=== PATIENT | female | born 1950 | race African-American/Black ===

== ENCOUNTER 2018-12-22 13:01 | Outpatient (CLI) | payer MEDICARE ==
--- NOTE | 2018-12-22 13:56 | MMO ---
Bilateral MAMMO Bilat Screen [facility]. CLINICAL HISTORY: Patient is 68 years old and is seen for screening. The patient has the following family history of breast cancer: maternal aunt, malignant (generic). 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 VIEWS: The views performed were: bilateral craniocaudal with tomosynthesis and bilateral mediolateral oblique with tomosynthesis. FILMS COMPARED: The present examination has been compared to prior imaging studies performed at [facility] on 10/11/2008, 05/28/2010 and 03/28/2012. This study has been interpreted with the assistance of computer-aided detection. MAMMOGRAM FINDINGS: There are scattered fibroglandular densities. Finding 1: There is a stable mass seen in the lower region of the left breast. Finding 2: There are benign appearing calcifications seen in the left breast. There are no suspicious masses, suspicious calcifications, or new areas of architectural distortion. IMPRESSION: THERE IS NO MAMMOGRAPHIC EVIDENCE OF MALIGNANCY. A ROUTINE FOLLOW-UP MAMMOGRAM IN 1 YEAR IS RECOMMENDED. THE RESULTS OF THIS EXAM WERE SENT TO THE PATIENT. ACR BI-RADS Category 2 - Benign finding MAMMOGRAPHY NOTE: 1. A negative mammogram report should not delay a biopsy if a dominant of clinically suspicious mass is present. 2. Approximately 10% to 15% of breast cancers are not detected by mammography. 3. Adenosis and dense breasts may obscure an underlying neoplasm. Reported by: JUJU WU MD Electonically Signed: [id number]
== END 2018-12-22 13:02 | disposition home or self-care (01) ==
LOC: BICMAMMO 13:01
PROVIDERS: ATTEND Family Medicine
DX: Z12.31 Encounter for screening mammogram for malignant neoplasm of breast (principal); Z80.3 Family history of malignant neoplasm of breast; Z90.11 Acquired absence of right breast and nipple
CPT/HCPCS: 77063; 77067

== ENCOUNTER 2020-08-13 12:37 | Outpatient (CLI) | payer MEDICARE | END 2020-08-13 12:38 | disposition home or self-care (01) | LOC: BICMAMMO 12:37 | PROVIDERS: ATTEND Family Medicine | DX: Z12.31 Encounter for screening mammogram for malignant neoplasm of breast (principal); Z85.3 Personal history of malignant neoplasm of breast; Z80.3 Family history of malignant neoplasm of breast | CPT/HCPCS: 77063; 77067 ==

== ENCOUNTER 2022-01-21 13:46 | Outpatient (CLI) | payer MEDICARE, OTHER | END 2022-01-21 13:47 | disposition home or self-care (01) | LOC: BICMAMMO 13:46 | PROVIDERS: ATTEND Family Medicine | DX: Z12.31 Encounter for screening mammogram for malignant neoplasm of breast (principal); Z80.3 Family history of malignant neoplasm of breast; Z85.3 Personal history of malignant neoplasm of breast; Z90.11 Acquired absence of right breast and nipple | CPT/HCPCS: 77063; 77067 ==

== ENCOUNTER 2022-02-11 07:34 | Day surgery (SDC) | payer MEDICARE ==
[2022-02-10 10:44] VITALS: BMI 32.5
[2022-02-11] MEDS ORDERED: SUGAMMADEX SODIUM 200 MG/2 ML VIAL ONE (10:22)
[2022-02-11] MEDS ORDERED: Rocuronium Bromide 10 MG/ML (10ML VIAL) ONE (10:36)
[2022-02-11] MEDS ORDERED: Metoclopramide HCl 10 MG/2 ML VIAL ONE (10:36)
[2022-02-11] MEDS ORDERED: Lidocaine 1% PF 5 ML VIAL ONE (10:36)
[2022-02-11] MEDS ORDERED: Glycopyrrolate 0.2 MG/ML 5 ML SYRINGE ONE (10:36)
[2022-02-11] MEDS ORDERED: NEOSTIGMINE 3 MG/3 ML SYR 3 MG/3 ML SYRINGE ONE (10:36)
[2022-02-11] MEDS ORDERED: PROPOFOL 200 MG/20 ML VIAL ONE (10:36)
[2022-02-11] MEDS ORDERED: Ondansetron PF 4 MG/2 ML Vial ONE (10:36)
[2022-02-11] MEDS ORDERED: PHENYLEPHRINE-NS 100 MCG/ML 10 ML SYRINGE ONE (10:36)
[2022-02-11] MEDS ORDERED: Succinylcholine Chloride 100 MG/5 ML SYRINGE FS ONE (10:36)
== END 2022-02-11 13:00 | disposition home or self-care (01) ==
LOC: SDC 07:34
PROVIDERS: ATTEND Internal Medicine Critical Care Medicine
PROC: 0BB48ZX Excision of Right Upper Lobe Bronchus, Via Natural or Artificial Opening Endoscopic, Diagnostic (ICD-10-PCS; principal; 2022-02-11)
PROC: 0BD48ZX Extraction of Right Upper Lobe Bronchus, Via Natural or Artificial Opening Endoscopic, Diagnostic (ICD-10-PCS; 2022-02-11)
DX: J98.4 Other disorders of lung (principal); I10 Essential (primary) hypertension; E11.9 Type 2 diabetes mellitus without complications; M19.90 Unspecified osteoarthritis, unspecified site; E78.5 Hyperlipidemia, unspecified; G47.30 Sleep apnea, unspecified; F17.290 Nicotine dependence, other tobacco product, uncomplicated; G89.29 Other chronic pain; Z85.3 Personal history of malignant neoplasm of breast; Z79.4 Long term (current) use of insulin; Z79.84 Long term (current) use of oral hypoglycemic drugs; Z79.899 Other long term (current) drug therapy; Z88.5 Allergy status to narcotic agent
CPT/HCPCS: 36416; 87070; 87102; 87116; 87205; 87206; 88112; 88305; J2405; J2704; J2765

== ENCOUNTER 2022-03-10 08:53 | Outpatient (CLI) | payer MEDICARE ==
[2022-03-10 11:02] LABS: Mean Corpuscular HGB CONC 32.4 g/dL (32.0-36.0); Mean Corpuscular Hemoglobin 29.5 pg (27.0-33.0); Mean Corpuscular Volume 90.9 fl (81.6-98.3); Mean Platelet Volume 10.6 fl (7.4-10.4); Platelet Count 267 10x3/uL (150-450); RBC Distribution Width 14.7 % (11.5-14.5); Red Blood Cell (RBC) Count 4.75 10x6/uL (3.90-5.03); White Blood Cell (WBC) Count 4.7 10x3/uL (3.5-10.5)
[2022-03-10 11:08] LABS: Anion Gap 13 mmol/L (10-20); BUN (Urea Nitrogen) 14 mg/dL (9.8-20.1); Calc. Creatinine Clearance 0 mL/min (70-130); Calcium 10.7 mg/dL (7.8-10.44); Carbon Dioxide 29 mmol/L (23-31); Chloride 104 mmol/L (98-107); Estimated GFR 49; Glucose 108 mg/dL (83-110); Potassium 3.9 mmol/L (3.5-5.1); Sodium 142 mmol/L (136-145)
== END 2022-03-10 08:54 | disposition home or self-care (01) ==
LOC: LABBT 08:53
PROVIDERS: ATTEND Thoracic Surgery (Cardiothoracic Vascular Surgery)
DX: Z01.818 Encounter for other preprocedural examination (principal)
CPT/HCPCS: 80048; 85027; 93005; 93010

== ENCOUNTER 2022-03-11 06:21 | Day surgery (SDC) | payer MEDICARE ==
[2022-03-10 10:37] VITALS: BMI 31.2
[2022-03-11] MEDS ORDERED: Midazolam HCl 2 mg/2 ml Vial ONE (06:24)
[2022-03-11] MEDS ORDERED: fentaNYL PF 100 MCG/2 ML SYRINGE ONE (06:24)
[2022-03-11] MEDS ORDERED: Norepinephrine 4 MG/4 ML VIAL ONE (06:24)
[2022-03-11] MEDS ORDERED: PHENYLEPHRINE-NS 100 MCG/ML 10 ML SYRINGE ONE ×2 (06:25→07:00)
[2022-03-11] MEDS ORDERED: Dexamethasone 4 mg/ml Vial ONE (06:37)
[2022-03-11] MEDS ORDERED: Bupivacaine HCl 0.5%/Epinephrine 1:200,000/PF 30 ml Vial ONE (06:37)
[2022-03-11] MEDS ORDERED: Naloxone HCl 0.4 mg/ml Vial ONE (07:00)
[2022-03-11] MEDS ORDERED: PROPOFOL 200 MG/20 ML VIAL ONE (07:00)
[2022-03-11] MEDS ORDERED: diphenhydrAMINE 50 MG/ML VIAL ONE ×2 (07:00→08:10)
[2022-03-11] MEDS ORDERED: Ondansetron PF 4 MG/2 ML Vial ONE ×2 (07:00→08:10)
[2022-03-11] MEDS ORDERED: Rocuronium Bromide 10 MG/ML (10ML VIAL) ONE (07:00)
[2022-03-11] MEDS ORDERED: CEFAZOLIN 2 GM VIAL ONE (07:18)
[2022-03-11] MEDS ORDERED: Sodium Chloride 0.9% 100 ML ONE (07:18)
[2022-03-11] MEDS ORDERED: SUGAMMADEX SODIUM 200 MG/2 ML VIAL ONE (07:54)
== END 2022-03-11 09:43 | disposition home or self-care (01) ==
LOC: SDC 06:21
PROVIDERS: ATTEND Thoracic Surgery (Cardiothoracic Vascular Surgery)
PROC: 0HJPXZZ Inspection of Skin, External Approach (ICD-10-PCS; principal; 2022-03-11)
DX: J98.59 Other diseases of mediastinum, not elsewhere classified (principal); R91.8 Other nonspecific abnormal finding of lung field; R59.0 Localized enlarged lymph nodes; E11.9 Type 2 diabetes mellitus without complications; E78.2 Mixed hyperlipidemia; I10 Essential (primary) hypertension; M19.90 Unspecified osteoarthritis, unspecified site; E78.5 Hyperlipidemia, unspecified; Z53.8 Procedure and treatment not carried out for other reasons; Z85.3 Personal history of malignant neoplasm of breast; Z87.891 Personal history of nicotine dependence; Z79.4 Long term (current) use of insulin; Z79.84 Long term (current) use of oral hypoglycemic drugs; Z79.899 Other long term (current) drug therapy; Z88.5 Allergy status to narcotic agent
CPT/HCPCS: 36416; J1100; J1200; J2250; J2310; J2405; J2704; J3490

== ENCOUNTER 2022-03-16 06:04 | Day surgery (SDC) | payer MEDICARE ==
[2022-03-13 15:17] VITALS: BMI 31.2
[2022-03-16] MEDS ORDERED: Dexamethasone 4 mg/ml Vial ONE (06:34)
[2022-03-16] MEDS ORDERED: Bupivacaine HCl 0.5%/Epinephrine 1:200,000/PF 30 ml Vial ONE (06:34)
[2022-03-16] MEDS ORDERED: fentaNYL PF 100 MCG/2 ML SYRINGE ONE (07:03)
[2022-03-16] MEDS ORDERED: Sodium Chloride 0.9% 100 ML ONE (07:13)
[2022-03-16] MEDS ORDERED: CEFAZOLIN 2 GM VIAL ONE (07:13)
[2022-03-16] MEDS ORDERED: Rocuronium Bromide 10 MG/ML (10ML VIAL) ONE (07:33)
[2022-03-16] MEDS ORDERED: NEOSTIGMINE 3 MG/3 ML SYR 3 MG/3 ML SYRINGE ONE (07:33)
[2022-03-16] MEDS ORDERED: Ondansetron PF 4 MG/2 ML Vial ONE (07:33)
[2022-03-16] MEDS ORDERED: Lidocaine 1% PF 5 ML VIAL ONE (07:33)
[2022-03-16] MEDS ORDERED: PHENYLEPHRINE-NS 100 MCG/ML 10 ML SYRINGE ONE (07:33)
[2022-03-16] MEDS ORDERED: ePHEDrine 50 MG/ML VIAL ONE (07:33)
[2022-03-16] MEDS ORDERED: PROPOFOL 200 MG/20 ML VIAL ONE (07:33)
[2022-03-16] MEDS ORDERED: Glycopyrrolate 0.2 MG/ML 5 ML SYRINGE ONE (07:33)
[2022-03-16] MEDS ORDERED: Dexamethasone 20 MG/5 ML VIAL ONE (07:33)
[2022-03-16] MEDS ORDERED: Ipratropium/Albuterol 3 ML NEB ONE (08:40)
[2022-03-16] MEDS ORDERED: Fentanyl 100 MCG/2 ML VIAL ONE (09:00)
[2022-03-16] MEDS ORDERED: HYDROcodone/Acetaminophen 5/325 mg Tablet ONE (09:46)
== END 2022-03-16 10:38 | disposition home or self-care (01) ==
LOC: SDC 06:04
PROVIDERS: ATTEND Thoracic Surgery (Cardiothoracic Vascular Surgery)
PROC: 07B74ZX Excision of Thorax Lymphatic, Percutaneous Endoscopic Approach, Diagnostic (ICD-10-PCS; principal; 2022-03-16)
DX: C34.90 Malignant neoplasm of unspecified part of unspecified bronchus or lung (principal); C77.1 Secondary and unspecified malignant neoplasm of intrathoracic lymph nodes; E11.9 Type 2 diabetes mellitus without complications; E78.2 Mixed hyperlipidemia; I10 Essential (primary) hypertension; M19.90 Unspecified osteoarthritis, unspecified site; Z85.3 Personal history of malignant neoplasm of breast; Z87.891 Personal history of nicotine dependence; Z79.4 Long term (current) use of insulin; Z79.84 Long term (current) use of oral hypoglycemic drugs; Z79.899 Other long term (current) drug therapy; Z88.5 Allergy status to narcotic agent
CPT/HCPCS: 88305; 88341; 88342; J1100; J2405; J2704; J3010; J3490; J7620

== ENCOUNTER 2022-04-14 10:27 | Outpatient (CLI) | payer MEDICARE ==
[2022-04-14 12:19] LABS: #Basophils 0.1 10x3/uL (0.0-0.2); #Eosinphils 0.2 10x3/uL (0.0-0.5); #Monocytes 0.5 10x3/uL (0.0-1.1); #Neutrophils 3.3 10x3/uL (1.5-8.4); %Basophils 1.3 % (0.0-2.0); %Eosinophils 3.2 % (0.0-6.0); %Lymphocytes 24.4 % (18.0-47.0); %Monocytes 9.3 % (0.0-10.0); %Neutrophils 61.6 % (40.0-75.0); Hemoglobin 13.3 g/dL (12.0-15.5); Mean Corpuscular HGB CONC 31.4 g/dL (32.0-36.0); Mean Corpuscular Hemoglobin 28.9 pg (27.0-33.0); Mean Corpuscular Volume 91.8 fl (81.6-98.3); Mean Platelet Volume 10.7 fl (7.4-10.4); Platelet Count 290 10x3/uL (150-450); Red Blood Cell (RBC) Count 4.61 10x6/uL (3.90-5.03); White Blood Cell (WBC) Count 5.4 10x3/uL (3.5-10.5)
[2022-04-14 12:35] LABS: Anion Gap 17 mmol/L (10-20); BUN (Urea Nitrogen) 13 mg/dL (9.8-20.1); Calc. Creatinine Clearance 0 mL/min (70-130); Calcium 10.7 mg/dL (7.8-10.44); Carbon Dioxide 27 mmol/L (23-31); Chloride 102 mmol/L (98-107); Estimated GFR 47; Glucose 81 mg/dL (83-110); Sodium 142 mmol/L (136-145)
== END 2022-04-14 10:28 | disposition home or self-care (01) ==
LOC: LABBT 10:27
PROVIDERS: ATTEND Surgery
DX: Z01.812 Encounter for preprocedural laboratory examination (principal); C34.90 Malignant neoplasm of unspecified part of unspecified bronchus or lung
CPT/HCPCS: 80048; 85025

== ENCOUNTER 2022-04-16 11:45 | Outpatient (CLI) | payer MEDICARE | END 2022-04-16 11:46 | disposition home or self-care (01) | LOC: PET 11:45 | PROVIDERS: ATTEND Internal Medicine | DX: C34.31 Malignant neoplasm of lower lobe, right bronchus or lung (principal); C78.1 Secondary malignant neoplasm of mediastinum; C79.72 Secondary malignant neoplasm of left adrenal gland; C79.51 Secondary malignant neoplasm of bone; C79.89 Secondary malignant neoplasm of other specified sites | CPT/HCPCS: 78815; A9552 ==

== ENCOUNTER 2022-04-17 11:00 | Day surgery (SDC) | payer MEDICARE ==
[2022-04-15 14:56] VITALS: BMI 31.6
[2022-04-17] MEDS ORDERED: Bupivacaine/Epinephrine 0.25% 30 ML VIAL ONE (13:17)
[2022-04-17] MEDS ORDERED: Lidocaine 2% PF 5 ML VIAL ONE (13:17)
[2022-04-17] MEDS ORDERED: Propofol 500 MG/50 ML VIAL ONE (13:24)
[2022-04-17] MEDS ORDERED: fentaNYL PF 100 MCG/2 ML SYRINGE ONE (13:24)
[2022-04-17] MEDS ORDERED: CEFAZOLIN 2 GM VIAL ONE (13:27)
[2022-04-17] MEDS ORDERED: Sodium Chloride 0.9% 100 ML ONE (13:27)
== END 2022-04-17 15:20 | disposition home or self-care (01) ==
LOC: SDC 11:00
PROVIDERS: ATTEND Surgery
PROC: 0JH60WZ Insertion of Totally Implantable Vascular Access Device into Chest Subcutaneous Tissue and Fascia, Open Approach (ICD-10-PCS; principal; 2022-04-17)
PROC: 02HV33Z Insertion of Infusion Device into Superior Vena Cava, Percutaneous Approach (ICD-10-PCS; 2022-04-17)
PROC: B518YZA Fluoroscopy of Superior Vena Cava using Other Contrast, Guidance (ICD-10-PCS; 2022-04-17)
DX: C34.90 Malignant neoplasm of unspecified part of unspecified bronchus or lung (principal); I10 Essential (primary) hypertension; E11.9 Type 2 diabetes mellitus without complications; Z79.4 Long term (current) use of insulin; Z79.84 Long term (current) use of oral hypoglycemic drugs; Z79.899 Other long term (current) drug therapy; Z88.5 Allergy status to narcotic agent; Z87.891 Personal history of nicotine dependence; Z85.3 Personal history of malignant neoplasm of breast
CPT/HCPCS: 36561; 71045; 82962; C1788; 36416; J1642; J2001; J2704; J3490

== ENCOUNTER 2022-04-21 13:41 | Outpatient (CLI) | payer MEDICARE | END 2022-04-21 13:42 | disposition home or self-care (01) | LOC: SCSMRI 13:41 | PROVIDERS: ATTEND Internal Medicine | DX: C34.91 Malignant neoplasm of unspecified part of right bronchus or lung (principal); I67.82 Cerebral ischemia | CPT/HCPCS: 70553 ==

== ENCOUNTER 2022-05-11 22:17 | Emergency (ER) | payer MEDICARE ==
[2022-05-12 02:29] LABS: #Basophils 0.1 thou/uL (0.0-0.2); #Eosinphils 0.2 thou/uL (0.0-0.7); #Lymphocytes 1.1 thou/uL (1.20-3.40); #Monocytes 0.7 thou/uL (0.11-0.59); #Neutrophils 4.5 thou/uL (1.40-6.50); %Basophils 1.2 % (0.0-1.0); %Eosinophils 2.5 % (0.0-10.0); %Lymphocytes 17.4 % (21.0-51.0); %Monocytes 10.2 % (0.0-10.0); %Neutrophils 68.7 % (42.0-75.0); Hemoglobin 14.2 g/dL (12.0-16.0); Mean Corpuscular HGB CONC 32.7 g/dL (32.0-36.0); Mean Corpuscular Hemoglobin 30.4 pg (27.0-31.0); Mean Corpuscular Volume 92.8 fl (78.0-98.0); Mean Platelet Volume 8.4 fL (7.4-10.4); Platelet Count 244 10x3/uL (130-400); RBC Distribution Width 12.8 % (11.5-14.5); Red Blood Cell (RBC) Count 4.69 mill/uL (4.20-5.40); White Blood Cell (WBC) Count 6.5 10x3/uL (4.8-10.8)
[2022-05-12 03:11] LABS: ALT (SGPT) 11 U/L (8-55); AST (SGOT) 14 U/L (5-34); Albumin 4.2 g/dL (3.4-4.8); Alkaline Phosphatase 89 U/L (40-110); Anion Gap 15 mmol/L (10-20); BUN (Urea Nitrogen) 14 mg/dL (9.8-20.1); Bilirubin, Total 0.9 mg/dL (0.2-1.2); Calc. Creatinine Clearance 0 mL/min (70-130); Calcium 10.7 mg/dL (7.8-10.44); Carbon Dioxide 26 mmol/L (23-31); Chloride 99 mmol/L (98-107); Estimated GFR 56; Globulin 3.1 g/dL (2.4-3.5); Glucose 105 mg/dL (83-110); Lipase 22 U/L (8-78); Potassium 3.7 mmol/L (3.5-5.1); Protein, Total 7.3 g/dL (5.8-8.1); Sodium 136 mmol/L (136-145)
[2022-05-12] MEDS ORDERED: Ketorolac Tromethamine 30 MG/ML VIAL ONE (03:15)
[2022-05-12] MEDS ORDERED: Ondansetron PF 4 MG/2 ML Vial ONE (03:15)
[2022-05-12] MEDS ORDERED: Morphine 4 MG/ML VIAL ONE (03:15)
== END 2022-05-12 08:41 | disposition home or self-care (01) ==
LOC: ERS 22:17
DX: J18.9 Pneumonia, unspecified organism (principal); R11.0 Nausea; E78.00 Pure hypercholesterolemia, unspecified; E11.9 Type 2 diabetes mellitus without complications; I10 Essential (primary) hypertension; Z87.891 Personal history of nicotine dependence
CPT/HCPCS: 36415; 71045; 71275; 76705; 80053; 83690; 85025; 85379; 96374; 96375; J1885; J2270; J2405

== ENCOUNTER 2022-09-04 10:57 | Outpatient (CLI) | payer MEDICARE ==
[2022-09-04] MEDS ORDERED: Magnevist 469MG/ML 20 ML VIAL ONE (11:37)
== END 2022-09-04 10:58 | disposition home or self-care (01) ==
LOC: PET 10:57
PROVIDERS: ATTEND Internal Medicine
DX: C34.91 Malignant neoplasm of unspecified part of right bronchus or lung (principal); C79.31 Secondary malignant neoplasm of brain; C79.51 Secondary malignant neoplasm of bone; R91.1 Solitary pulmonary nodule
CPT/HCPCS: 70553; 78815; A9552; A9579

== ENCOUNTER 2022-12-08 10:15 | Outpatient (CLI) | payer MEDICARE | END 2022-12-08 10:16 | disposition home or self-care (01) | LOC: PET 10:15 | PROVIDERS: ATTEND Internal Medicine | DX: C34.31 Malignant neoplasm of lower lobe, right bronchus or lung (principal) | CPT/HCPCS: 78815; A9552 ==

== ENCOUNTER 2023-01-13 12:08 | Outpatient (CLI) | payer MEDICARE | END 2023-01-13 12:09 | disposition home or self-care (01) | LOC: SCSMRI 12:08 | PROVIDERS: ATTEND Internal Medicine | DX: C34.91 Malignant neoplasm of unspecified part of right bronchus or lung (principal); C79.31 Secondary malignant neoplasm of brain; R42 Dizziness and giddiness | CPT/HCPCS: 70553; 80053 ==

== ENCOUNTER 2023-03-21 09:02 | Emergency (ER) | payer MEDICARE ==
[2023-03-21 09:55] LABS: #Basophils 0.1 thou/uL (0.0-0.2); #Eosinphils 0.1 thou/uL (0.0-0.7); #Monocytes 0.5 thou/uL (0.11-0.59); #Neutrophils 1.5 thou/uL (1.40-6.50); %Basophils 1.4 % (0.0-1.0); %Lymphocytes 36.9 % (21.0-51.0); %Monocytes 14.6 % (0.0-10.0); %Neutrophils 43.1 % (42.0-75.0); Hematocrit 39.2 % (36.0-47.0); Hemoglobin 12.6 g/dL (12.0-16.0); Mean Corpuscular HGB CONC 32.1 g/dL (32.0-36.0); Mean Corpuscular Hemoglobin 30.1 pg (27.0-31.0); Mean Corpuscular Volume 93.6 fl (78.0-98.0); Mean Platelet Volume 10.9 fL (7.4-10.4); Platelet Count 226 10x3/uL (130-400); RBC Distribution Width 13.7 % (11.5-14.5); Red Blood Cell (RBC) Count 4.19 mill/uL (4.20-5.40); White Blood Cell (WBC) Count 3.5 10x3/uL (4.8-10.8)
[2023-03-21] MEDS ORDERED: Iopamidol-370 76% 500 ML MDV (1 ML CHARGE) ONE (10:10)
[2023-03-21 10:18] LABS: INR-International Normal Ratio 1.1; Prothrombin Time 14.4 sec (12.0-14.7)
[2023-03-21 10:19] LABS: ALT (SGPT) 26 U/L (8-55); AST (SGOT) 25 U/L (5-34); Albumin 3.9 g/dL (3.4-4.8); Alkaline Phosphatase 200 U/L (40-110); Anion Gap 11 mmol/L (10-20); BUN (Urea Nitrogen) 10 mg/dL (9.8-20.1); Bilirubin, Total 0.9 mg/dL (0.2-1.2); Calc. Creatinine Clearance 0 mL/min (70-130); Calcium 10.5 mg/dL (7.8-10.44); Carbon Dioxide 26 mmol/L (23-31); Chloride 105 mmol/L (98-107); Estimated GFR 69; Globulin 2.6 g/dL (2.4-3.5); Glucose 99 mg/dL (83-110); Lipase 30 U/L (8-78); Potassium 3.2 mmol/L (3.5-5.1); Protein, Total 6.5 g/dL (5.8-8.1); Sodium 139 mmol/L (136-145)
[2023-03-21 10:22] LABS: Troponin I Less than 0.010 ng/mL (< 0.028)
== END 2023-03-21 14:25 | disposition home or self-care (01) ==
LOC: ERS 09:02
DX: R07.9 Chest pain, unspecified (principal); E11.9 Type 2 diabetes mellitus without complications; I10 Essential (primary) hypertension; Z87.891 Personal history of nicotine dependence
CPT/HCPCS: 36415; 71045; 71275; 80053; 83690; 84484; 85025; 85610; 85730; 93005; Q9967

== ENCOUNTER 2023-07-22 08:13 | Outpatient (CLI) | payer MEDICARE | END 2023-07-22 08:14 | disposition home or self-care (01) | LOC: CT 08:13 | PROVIDERS: ATTEND Internal Medicine | DX: C34.91 Malignant neoplasm of unspecified part of right bronchus or lung (principal); R91.1 Solitary pulmonary nodule; E27.8 Other specified disorders of adrenal gland; R59.0 Localized enlarged lymph nodes; N83.8 Other noninflammatory disorders of ovary, fallopian tube and broad ligament | CPT/HCPCS: 71260; 74177; J1642 ==

== ENCOUNTER 2023-07-29 09:02 | Outpatient (CLI) | payer MEDICARE | END 2023-07-29 09:03 | disposition home or self-care (01) | LOC: SCSMRI 09:02 | PROVIDERS: ATTEND Radiology Radiation Oncology | DX: C79.51 Secondary malignant neoplasm of bone (principal); M46.1 Sacroiliitis, not elsewhere classified; M16.11 Unilateral primary osteoarthritis, right hip; N85.9 Noninflammatory disorder of uterus, unspecified; D25.9 Leiomyoma of uterus, unspecified | CPT/HCPCS: 72197 ==

== ENCOUNTER 2023-09-29 15:13 | Outpatient (CLI) | payer MEDICARE ==
[~2023-09-29 15:13] MED LIST: Iopamidol 370 76% 100 ML VIAL ONE
== END 2023-09-29 15:14 | disposition home or self-care (01) ==
LOC: BICCT 15:13
PROVIDERS: ATTEND Internal Medicine
DX: C34.90 Malignant neoplasm of unspecified part of unspecified bronchus or lung (principal); R91.1 Solitary pulmonary nodule; J98.4 Other disorders of lung; E27.9 Disorder of adrenal gland, unspecified
CPT/HCPCS: 71260; 74177; 82565; Q9967

== ENCOUNTER 2023-12-09 09:32 | Outpatient (CLI) | payer MEDICARE ==
[2023-12-09] MEDS ORDERED: Iopamidol 370 76% 100 ML VIAL ONE (13:37)
== END 2023-12-09 09:33 | disposition home or self-care (01) ==
LOC: BICCT 09:32
PROVIDERS: ATTEND Internal Medicine
DX: C34.91 Malignant neoplasm of unspecified part of right bronchus or lung (principal)
CPT/HCPCS: 71260; 74177

== ENCOUNTER 2024-02-08 14:33 | Emergency (ER) | payer MEDICARE | END 2024-02-08 16:58 | disposition home or self-care (01) | LOC: ERS 14:33 | DX: M79.604 Pain in right leg (principal); E11.9 Type 2 diabetes mellitus without complications; I10 Essential (primary) hypertension; Z87.891 Personal history of nicotine dependence ==

== ENCOUNTER 2024-03-07 08:45 | Outpatient (CLI) | payer MEDICARE | END 2024-03-07 08:46 | disposition home or self-care (01) | LOC: PET 08:45 | PROVIDERS: ATTEND Internal Medicine | DX: C34.31 Malignant neoplasm of lower lobe, right bronchus or lung (principal); R97.8 Other abnormal tumor markers; E27.8 Other specified disorders of adrenal gland; M48.8X6 Other specified spondylopathies, lumbar region | CPT/HCPCS: 78815; A9552 ==

== ENCOUNTER 2024-03-21 04:40 | Inpatient (IN) | payer OTHER ==
[2024-03-21 05:13] LABS: #Basophils Less than 0.03 10x3/uL (0.0-0.2); %Basophils 0.3 % (0.0-1.0); %Eosinophils 1.1 % (0.0-10.0); %Monocytes 7.6 % (0.0-10.0); %Neutrophils 75.4 % (42.0-75.0); Hematocrit 36.7 % (36.0-47.0); Hemoglobin 12.3 g/dL (12.0-16.0); Mean Corpuscular HGB CONC 33.5 g/dL (32.0-36.0); Mean Corpuscular Hemoglobin 28.6 pg (27.0-31.0); Mean Corpuscular Volume 85.3 fL (78.0-98.0); Mean Platelet Volume 10.6 fL (7.4-10.4); Platelet Count 183 10x3/uL (130-400); RBC Distribution Width 14.7 % (11.5-14.5)
[2024-03-21 05:28] LABS: ALT (SGPT) 9 U/L (Less than 34); AST (SGOT) 19 U/L (11-34); Albumin 3.5 g/dL (3.1-4.5); Alkaline Phosphatase 143 U/L (40-110); Anion Gap 14 mmol/L (10-20); BUN (Urea Nitrogen) 31 mg/dL (9.8-20.1); Bilirubin, Total 0.6 mg/dL (0.3-1.2); CK (CPK) 99 U/L (29-168); Calc. Creatinine Clearance 0 mL/min (70-130); Calcium 9.6 mg/dL (7.8-10.44); Carbon Dioxide 20 mmol/L (23-31); Chloride 104 mmol/L (98-107); Estimated GFR 27; Globulin 2.9 g/dL (2.4-3.5); Glucose 99 mg/dL (83-110); Lipase 52 U/L (8-78); Potassium 4.2 mmol/L (3.5-5.1); Protein, Total 6.4 g/dL (5.8-8.1); Sodium 134 mmol/L (136-145)
[2024-03-21 05:32] LABS: Troponin I 0.017 ng/mL (< 0.028)
[2024-03-21] MEDS ORDERED: Enoxaparin 30 MG (0.3 mL) SYRINGE ONE (08:05)
[2024-03-21] MEDS ORDERED: TRAMADOL HCL 100 MG PO PRN (08:18)
[2024-03-21] MEDS ORDERED: Calcium Carbonate 500 MG ChewTAB PO PRN (08:19)
[2024-03-21] MEDS ORDERED: Senokot S 8.6-50 MG TAB PO PRN ×2 (08:19→08:59)
[2024-03-21] MEDS ORDERED: traMADol HCl 50 MG TAB PO PRN (08:27)
[2024-03-21] MEDS ORDERED: Sodium Chloride 0.9% 1,000 ML IV SCH (08:30)
[2024-03-21] MEDS ORDERED: Insulin Lispro 100 UNIT/ML 10 ML VIAL SC PRN (08:33)
[2024-03-21] MEDS ORDERED: Dextrose 5% in Water 1,000 ML IV PRN (08:33)
[2024-03-21] MEDS ORDERED: Glucagon 1 MG/ML KIT IM PRN (08:33)
[2024-03-21] MEDS ORDERED: Enoxaparin 40 MG (0.4 mL) SYRINGE SC SCH (09:00)
[2024-03-21] MEDS ORDERED: Empagliflozin 10 MG TAB PO SCH (09:00)
[2024-03-21] MEDS ORDERED: Iopamidol-370 76% 500 ML MDV (1 ML CHARGE) ONE (11:26)
[2024-03-21] MEDS: Sodium Chloride 0.9% 1,000 ML IV SCH (14:06)
[2024-03-21] MEDS: Lisinopril 20 MG TAB PO SCH (14:06)
[2024-03-21] MEDS: Dextrose 50% Abboject 50 ML SYRINGE SLOW IVP PRN (16:18)
[2024-03-21] MEDS: Dextrose 5 % And 0.9 % NaCl 1,000 ML IV SCH (17:45)
[2024-03-21] MEDS: Enoxaparin 80 MG (0.8 mL) SYRINGE SC SCH (20:29)
[2024-03-21] MEDS: Memantine 10 MG TAB PO SCH (20:30)
[2024-03-21] MEDS: Atorvastatin Calcium 20 MG TAB PO SCH (20:30)
[2024-03-21] MEDS: Sodium Chloride 0.9% 500 ML IV SCH (20:31)
[2024-03-21] MEDS ORDERED: Insulin Glargine 30 UNITS/0.3 ML VIAL SC SCH (21:00)
[2024-03-22] MEDS: [UNRECOGNIZED DRUG - OTHER] PO SCH (01:23)
[2024-03-22] MEDS: Ondansetron PF 4 MG/2 ML Vial IVP PRN (02:34)
[2024-03-22 04:32] LABS: #Basophils Less than 0.03 10x3/uL (0.0-0.2); %Basophils 0.3 % (0.0-1.0); %Monocytes 8.7 % (0.0-10.0); Hematocrit 36.6 % (36.0-47.0); Hemoglobin 11.5 g/dL (12.0-16.0); Mean Corpuscular HGB CONC 31.4 g/dL (32.0-36.0); Mean Corpuscular Hemoglobin 28.6 pg (27.0-31.0); Mean Platelet Volume 10.7 fL (7.4-10.4); Platelet Count 163 10x3/uL (130-400); Red Blood Cell (RBC) Count 4.02 mill/uL (4.20-5.40)
[2024-03-22 05:15] LABS: ALT (SGPT) 7 U/L (Less than 34); AST (SGOT) 18 U/L (11-34); Albumin 2.8 g/dL (3.1-4.5); Alkaline Phosphatase 120 U/L (40-110); Anion Gap 15 mmol/L (10-20); BUN (Urea Nitrogen) 17 mg/dL (9.8-20.1); Bilirubin, Total 0.7 mg/dL (0.3-1.2); Calc. Creatinine Clearance 39 mL/min (70-130); Calcium 8.7 mg/dL (7.8-10.44); Carbon Dioxide 13 mmol/L (23-31); Chloride 114 mmol/L (98-107); Estimated GFR 40; Globulin 2.6 g/dL (2.4-3.5); Glucose 104 mg/dL (83-110); Magnesium 1.9 mg/dL (1.6-2.6); Potassium 3.9 mmol/L (3.5-5.1); Protein, Total 5.4 g/dL (5.8-8.1); Sodium 138 mmol/L (136-145)
[2024-03-22] MEDS: Levothyroxine Sodium 75 MCG TAB PO SCH (05:28)
[2024-03-22 10:02] VITALS: BMI 26.4
[2024-03-22] MEDS ORDERED: Loperamide HCl 2 MG CAP PO PRN (14:17)
[2024-03-22 15:59] LABS: Bacteria/HPF None Seen HPF (None Seen); Bilirubin Negative (Negative); Blood, Urine Negative (Negative); CAUTI Indications for Culture Immunosuppressed; Clarity Clear (Clear); Glucose, Urine (Dipstick) 300 mg/dL (Negative); Ketone, Urine Negative (Negative); Leukocyte Negative Leu/uL (Negative); Nitrite Negative (Negative); Protein, Urine (Dipstick) Negative (Neg-Trace); RBC/HPF 0-3 HPF (0-3); Specific Gravity, Urine 1.016 (1.002-1.036); Squamous Epithelial 0-3 HPF (0-3); Urobilinogen Normal mg/dL (Less than 2); WBC/HPF 0-3 HPF (0-3)
[2024-03-22] MEDS: Loperamide HCl 2 MG CAP PO SCH (16:03)
[2024-03-22 16:06] LABS: Urine Culture Reflex Yes Yes
[2024-03-23 08:14] LABS: #Basophils Less than 0.03 10x3/uL (0.0-0.2); %Basophils 0.5 % (0.0-1.0); %Eosinophils 1.7 % (0.0-10.0); %Lymphocytes 9.5 % (21.0-51.0); %Neutrophils 78.1 % (42.0-75.0); Hematocrit 35.7 % (36.0-47.0); Hemoglobin 11.8 g/dL (12.0-16.0); Mean Corpuscular HGB CONC 33.1 g/dL (32.0-36.0); Mean Corpuscular Hemoglobin 28.8 pg (27.0-31.0); Mean Corpuscular Volume 87.1 fL (78.0-98.0); Mean Platelet Volume 9.4 fL (7.4-10.4); Platelet Count 162 10x3/uL (130-400); RBC Distribution Width 15.1 % (11.5-14.5)
[2024-03-23 08:28] LABS: Anion Gap 10 mmol/L (10-20); BUN (Urea Nitrogen) 9 mg/dL (9.8-20.1); Calc. Creatinine Clearance 47 mL/min (70-130); Calcium 8.7 mg/dL (7.8-10.44); Carbon Dioxide 18 mmol/L (23-31); Chloride 114 mmol/L (98-107); Estimated GFR 50; Glucose 87 mg/dL (83-110); Potassium 3.6 mmol/L (3.5-5.1); Sodium 138 mmol/L (136-145)
[2024-03-23] MEDS: Acetaminophen 325 MG TAB PO PRN (09:08)
[2024-03-23 14:19] VITALS: BMI 26.4
[2024-03-24] MEDS: Apixaban 5 MG TAB PO SCH (09:03)
[2024-03-24 12:28] VITALS: BP 111/68
[2024-03-24 15:57] VITALS: TEMP 98.2
[2024-03-31] MEDS ORDERED: Apixaban 5 MG TAB PO SCH (09:00)
== END 2024-03-24 17:10 | DRG 299 ==
LOC: SUATTDRO 04:40 → ERS 04:40 → ERHOLD 08:14 → OBS 13:21 → 2NO 19:27 → OBSVTOIN 03-22 10:09
PROVIDERS: ADMIT Internal Medicine; ATTEND Internal Medicine
DX: I82.412 Acute embolism and thrombosis of left femoral vein (principal); I26.99 Other pulmonary embolism without acute cor pulmonale; C34.90 Malignant neoplasm of unspecified part of unspecified bronchus or lung; C79.31 Secondary malignant neoplasm of brain; I10 Essential (primary) hypertension; E03.9 Hypothyroidism, unspecified; E78.5 Hyperlipidemia, unspecified; T45.1X5A Adverse effect of antineoplastic and immunosuppressive drugs, initial encounter; R53.1 Weakness; F03.90 Unspecified dementia, unspecified severity, without behavioral disturbance, psychotic disturbance, mood disturbance, and anxiety; E11.65 Type 2 diabetes mellitus with hyperglycemia; R32 Unspecified urinary incontinence; R11.2 Nausea with vomiting, unspecified; R19.7 Diarrhea, unspecified; Z79.899 Other long term (current) drug therapy; Z79.01 Long term (current) use of anticoagulants
CPT/HCPCS: 36415; 36416; 71045; 71275; 80048; 80053; 81001; 82140; 82550; 83690; 83735; 84436; 84443; 84480; 84484; 85025; 85379; 87086; 87428; 93005; 93306; 93970; J1611; J1650; J2405; J7030; J7042; J7999; Q9967

== ENCOUNTER 2024-10-20 09:20 | Inpatient (IN) | payer OTHER ==
[2024-10-20 10:23] LABS: #Basophils Less than 0.03 10x3/uL (0.0-0.2); #Eosinophils 0.10 10x3/uL (0.0-0.7); #Monocytes 0.49 10x3/uL (0.11-0.59); #Neutrophils 2.83 10x3/uL (1.40-6.50); %Basophils 0.5 % (0.0-1.0); %Eosinophils 2.5 % (0.0-10.0); %Lymphocytes 14.4 % (21.0-51.0); %Monocytes 12.1 % (0.0-10.0); %Neutrophils 70.0 % (42.0-75.0); Hematocrit 35.0 % (36.0-47.0); Hemoglobin 11.1 g/dL (12.0-16.0); Mean Corpuscular Hemoglobin 29.2 pg (27.0-31.0); Mean Corpuscular Volume 92.1 fL (78.0-98.0); Platelet Count 177 10x3/uL (130-400); Red Blood Cell (RBC) Count 3.80 mill/uL (4.20-5.40); White Blood Cell (WBC) Count 4.04 10x3/uL (4.8-10.8)
[2024-10-20 10:40] LABS: ALT (SGPT) Less than 7 U/L (Less than 34); AST (SGOT) 22 U/L (11-34); Albumin 3.6 g/dL (3.1-4.5); Alkaline Phosphatase 71 U/L (40-110); Anion Gap 13 mmol/L (10-20); BUN (Urea Nitrogen) 16 mg/dL (9.8-20.1); Bilirubin, Total 0.6 mg/dL (0.3-1.2); Calc. Creatinine Clearance 0 mL/min (70-130); Calcium 9.4 mg/dL (7.8-10.44); Carbon Dioxide 23 mmol/L (23-31); Chloride 107 mmol/L (98-107); Globulin 2.4 g/dL (2.4-3.5); Glucose 86 mg/dL (83-110); Lipase 6 U/L (8-78); Potassium 4.0 mmol/L (3.5-5.1); Sodium 139 mmol/L (136-145)
[2024-10-20] MEDS ORDERED: Iopamidol-370 76% 500 ML MDV (1 ML CHARGE) ONE (11:22)
[2024-10-20] MEDS ORDERED: Ciprofloxacin Lactate D5W 400 mg (200 mL) BAG ONE (14:48)
[2024-10-20] MEDS ORDERED: metroNIDAZOLE 500 MG (100 mL) BAG ONE (14:48)
[2024-10-20 15:09] LABS: Bacteria/HPF None Seen HPF (None Seen); CAUTI Indications for Culture Pelvic or flank pain; Glucose, Urine (Dipstick) Normal (Negative); Leukocyte 250 Leu/uL (Negative); Protein, Urine (Dipstick) Negative (Neg-Trace); RBC/HPF 0-3 HPF (0-3); Specific Gravity, Urine 1.019 (1.002-1.036)
[2024-10-20 15:17] LABS: Urine Culture Reflex No No
[2024-10-20 15:32] VITALS: BMI 21.6
[2024-10-20] MEDS ORDERED: Electrolyte Replacement Protocol 1 EACH FS SCH (16:00)
[2024-10-20] MEDS: cefTRIAXone\\ROCEPHIN 1 GM in Sodium Chloride 0.9% 100 ML IVPB SCH (17:29)
[2024-10-20] MEDS: Enoxaparin 30 MG (0.3 mL) SYRINGE SC SCH (21:11)
[2024-10-21 05:35] LABS: #Basophils 0.04 10x3/uL (0.0-0.2); #Eosinophils 0.09 10x3/uL (0.0-0.7); #Monocytes 0.42 10x3/uL (0.11-0.59); #Neutrophils 2.55 10x3/uL (1.40-6.50); %Basophils 1.1 % (0.0-1.0); %Eosinophils 2.4 % (0.0-10.0); %Lymphocytes 16.8 % (21.0-51.0); %Monocytes 11.2 % (0.0-10.0); %Neutrophils 68.2 % (42.0-75.0); Hematocrit 32.4 % (36.0-47.0); Hemoglobin 10.3 g/dL (12.0-16.0); Mean Corpuscular Hemoglobin 29.7 pg (27.0-31.0); Mean Corpuscular Volume 93.4 fL (78.0-98.0); Platelet Count 187 10x3/uL (130-400); Red Blood Cell (RBC) Count 3.47 mill/uL (4.20-5.40); White Blood Cell (WBC) Count 3.74 10x3/uL (4.8-10.8)
[2024-10-21 06:11] LABS: ALT (SGPT) Less than 7 U/L (Less than 34); AST (SGOT) 23 U/L (11-34); Albumin 3.1 g/dL (3.1-4.5); Alkaline Phosphatase 65 U/L (40-110); Anion Gap 14 mmol/L (10-20); BUN (Urea Nitrogen) 11 mg/dL (9.8-20.1); Bilirubin, Total 0.5 mg/dL (0.3-1.2); Calc. Creatinine Clearance 38 mL/min (70-130); Calcium 8.9 mg/dL (7.8-10.44); Carbon Dioxide 24 mmol/L (23-31); Chloride 103 mmol/L (98-107); Globulin 2.2 g/dL (2.4-3.5); Glucose 65 mg/dL (83-110); Potassium 3.8 mmol/L (3.5-5.1); Sodium 137 mmol/L (136-145)
[2024-10-21] MEDS ORDERED: Iopamidol-370 76% 500 ML MDV (1 ML CHARGE) ONE (11:44)
[2024-10-21 14:08] VITALS: BMI 21.6
[2024-10-21] MEDS: Ondansetron PF 4 MG/2 ML Vial IVP PRN (20:29)
[2024-10-21] MEDS ORDERED: Glucagon 1 MG/ML KIT IM PRN (20:47)
[2024-10-21] MEDS ORDERED: Dextrose 50% Abboject 50 ML SYRINGE SLOW IVP PRN (20:47)
[2024-10-22 05:50] LABS: #Basophils 0.04 10x3/uL (0.0-0.2); #Eosinophils 0.12 10x3/uL (0.0-0.7); #Monocytes 0.57 10x3/uL (0.11-0.59); #Neutrophils 2.57 10x3/uL (1.40-6.50); %Basophils 1.0 % (0.0-1.0); %Eosinophils 3.1 % (0.0-10.0); %Lymphocytes 14.7 % (21.0-51.0); %Monocytes 14.7 % (0.0-10.0); %Neutrophils 66.2 % (42.0-75.0); Hematocrit 33.7 % (36.0-47.0); Hemoglobin 10.7 g/dL (12.0-16.0); Mean Corpuscular Hemoglobin 28.8 pg (27.0-31.0); Mean Corpuscular Volume 90.8 fL (78.0-98.0); Platelet Count 200 10x3/uL (130-400); Red Blood Cell (RBC) Count 3.71 mill/uL (4.20-5.40); White Blood Cell (WBC) Count 3.88 10x3/uL (4.8-10.8)
[2024-10-22 06:06] LABS: ALT (SGPT) 7 U/L (Less than 34); AST (SGOT) 22 U/L (11-34); Albumin 3.0 g/dL (3.1-4.5); Alkaline Phosphatase 62 U/L (40-110); Anion Gap 13 mmol/L (10-20); BUN (Urea Nitrogen) 7 mg/dL (9.8-20.1); Bilirubin, Total 0.5 mg/dL (0.3-1.2); Calc. Creatinine Clearance 43 mL/min (70-130); Calcium 8.5 mg/dL (7.8-10.44); Carbon Dioxide 21 mmol/L (23-31); Chloride 101 mmol/L (98-107); Globulin 2.3 g/dL (2.4-3.5); Glucose 79 mg/dL (83-110); Potassium 3.2 mmol/L (3.5-5.1); Sodium 132 mmol/L (136-145)
[2024-10-22] MEDS: Potassium Chloride 20 MEQ in Premix 1 BAG IVPB SCH (08:17)
[2024-10-22 08:44] LABS: Magnesium 1.3 mg/dL (1.6-2.6)
[2024-10-22] MEDS: Magnesium Sulfate In Water 4 GM in Premix 1 BAG IVPB SCH (12:38)
[2024-10-22] MEDS: Magnesium 2 GM/50 ML(in water) 2 GM in Premix 1 BAG IVPB SCH (12:59)
[2024-10-22] MEDS: Enoxaparin 40 MG (0.4 mL) SYRINGE SC SCH (21:35)
[2024-10-23 06:26] LABS: #Basophils 0.03 10x3/uL (0.0-0.2); #Eosinophils 0.13 10x3/uL (0.0-0.7); #Monocytes 0.73 10x3/uL (0.11-0.59); #Neutrophils 2.20 10x3/uL (1.40-6.50); %Basophils 0.8 % (0.0-1.0); %Eosinophils 3.3 % (0.0-10.0); %Lymphocytes 20.9 % (21.0-51.0); %Monocytes 18.6 % (0.0-10.0); %Neutrophils 55.9 % (42.0-75.0); Hematocrit 34.9 % (36.0-47.0); Hemoglobin 10.9 g/dL (12.0-16.0); Mean Corpuscular Hemoglobin 29.4 pg (27.0-31.0); Mean Corpuscular Volume 94.1 fL (78.0-98.0); Platelet Count 206 10x3/uL (130-400); Red Blood Cell (RBC) Count 3.71 mill/uL (4.20-5.40); White Blood Cell (WBC) Count 3.93 10x3/uL (4.8-10.8)
[2024-10-23 06:58] LABS: ALT (SGPT) Less than 7 U/L (Less than 34); AST (SGOT) 23 U/L (11-34); Albumin 2.8 g/dL (3.1-4.5); Alkaline Phosphatase 61 U/L (40-110); Anion Gap 15 mmol/L (10-20); BUN (Urea Nitrogen) 6 mg/dL (9.8-20.1); Bilirubin, Total 0.4 mg/dL (0.3-1.2); Calc. Creatinine Clearance 37 mL/min (70-130); Calcium 8.6 mg/dL (7.8-10.44); Carbon Dioxide 17 mmol/L (23-31); Chloride 103 mmol/L (98-107); Globulin 2.3 g/dL (2.4-3.5); Glucose 80 mg/dL (83-110); Magnesium 2.2 mg/dL (1.6-2.6); Potassium 3.9 mmol/L (3.5-5.1); Sodium 131 mmol/L (136-145)
[2024-10-23] MEDS: Pantoprazole 40 MG DR.TAB PO SCH (12:50)
[2024-10-23] MEDS: Carvedilol 3.125 MG TAB PO SCH (21:02)
[2024-10-23] MEDS: Apixaban 5 MG TAB PO SCH (21:02)
[2024-10-24] MEDS: HYDROcodone/Acetaminophen 10/325 mg Tablet PO PRN (00:53)
[2024-10-24 06:00] LABS: #Basophils 0.04 10x3/uL (0.0-0.2); #Eosinophils 0.12 10x3/uL (0.0-0.7); #Monocytes 0.54 10x3/uL (0.11-0.59); #Neutrophils 1.77 10x3/uL (1.40-6.50); %Basophils 1.3 % (0.0-1.0); %Eosinophils 3.9 % (0.0-10.0); %Lymphocytes 19.2 % (21.0-51.0); %Monocytes 17.6 % (0.0-10.0); %Neutrophils 57.7 % (42.0-75.0); Hematocrit 31.5 % (36.0-47.0); Hemoglobin 9.9 g/dL (12.0-16.0); Mean Corpuscular Hemoglobin 29.1 pg (27.0-31.0); Mean Corpuscular Volume 92.6 fL (78.0-98.0); Platelet Count 215 10x3/uL (130-400); Red Blood Cell (RBC) Count 3.40 mill/uL (4.20-5.40); White Blood Cell (WBC) Count 3.07 10x3/uL (4.8-10.8)
[2024-10-24 06:22] LABS: ALT (SGPT) Less than 7 U/L (Less than 34); AST (SGOT) 15 U/L (11-34); Albumin 2.7 g/dL (3.1-4.5); Alkaline Phosphatase 53 U/L (40-110); Anion Gap 13 mmol/L (10-20); BUN (Urea Nitrogen) 6 mg/dL (9.8-20.1); Bilirubin, Total 0.5 mg/dL (0.3-1.2); Calc. Creatinine Clearance 33 mL/min (70-130); Calcium 8.5 mg/dL (7.8-10.44); Carbon Dioxide 20 mmol/L (23-31); Chloride 104 mmol/L (98-107); Globulin 2.0 g/dL (2.4-3.5); Glucose 84 mg/dL (83-110); Potassium 3.5 mmol/L (3.5-5.1); Sodium 133 mmol/L (136-145)
[2024-10-24 07:03] LABS: Iron 44 ug/dL (50-170); Iron 45 ug/dL (50-170); Iron Binding Capacity, Total 96 mcg/dL (265-497); Iron Binding Capacity, Total 98 mcg/dL (265-497); Magnesium 2.0 mg/dL (1.6-2.6)
[2024-10-24 07:37] VITALS: BP 92/60; TEMP 98.2
[2024-10-24] MEDS: Magnesium 2 GM/50 ML(in water) 2 GM in Premix 1 BAG IVPB SCH (08:31)
[2024-10-24] MEDS: Pantoprazole 40 MG DR.TAB PO SCH (08:32)
[2024-10-24] MEDS ORDERED: Potassium Phosphate 15 MMOL in Sodium Chloride 0.9% 250 ML 250 ML IVPB SCH (08:45)
== END 2024-10-24 13:38 | disposition home or self-care (01) | DRG 394 ==
LOC: ERS 09:20 → SURG A 14:26
PROVIDERS: ADMIT Student in an Organized Health Care Education/Training Program; ATTEND Student in an Organized Health Care Education/Training Program
DX: K52.1 Toxic gastroenteritis and colitis (principal); C34.91 Malignant neoplasm of unspecified part of right bronchus or lung; N17.9 Acute kidney failure, unspecified; C78.1 Secondary malignant neoplasm of mediastinum; C79.31 Secondary malignant neoplasm of brain; C79.51 Secondary malignant neoplasm of bone; C79.70 Secondary malignant neoplasm of unspecified adrenal gland; I50.22 Chronic systolic (congestive) heart failure; I13.0 Hypertensive heart and chronic kidney disease with heart failure and stage 1 through stage 4 chronic kidney disease, or unspecified chronic kidney disease; E87.1 Hypo-osmolality and hyponatremia; T45.1X5A Adverse effect of antineoplastic and immunosuppressive drugs, initial encounter; Z66 Do not resuscitate; K52.9 Noninfective gastroenteritis and colitis, unspecified; E86.0 Dehydration; Z88.5 Allergy status to narcotic agent; Z79.899 Other long term (current) drug therapy; E78.5 Hyperlipidemia, unspecified; F03.90 Unspecified dementia, unspecified severity, without behavioral disturbance, psychotic disturbance, mood disturbance, and anxiety; Z92.3 Personal history of irradiation; Z92.25 Personal history of immunosuppression therapy; Z98.890 Other specified postprocedural states; Z87.891 Personal history of nicotine dependence; Z86.711 Personal history of pulmonary embolism; Z79.01 Long term (current) use of anticoagulants; E87.6 Hypokalemia; E83.42 Hypomagnesemia; E11.649 Type 2 diabetes mellitus with hypoglycemia without coma; M54.9 Dorsalgia, unspecified; G89.29 Other chronic pain; E11.22 Type 2 diabetes mellitus with diabetic chronic kidney disease; N18.31 Chronic kidney disease, stage 3a; E03.9 Hypothyroidism, unspecified
CPT/HCPCS: 36415; 36416; 70553; 71260; 74177; 76376; 80053; 81001; 82728; 83540; 83550; 83690; 83735; 84100; 85025; 87324; 87449; 93005; 96361; 96365; 96366; 96367; J0696; J0744; J1650; J2405; J2550; J3475; J3480; J7120; Q9967

== ENCOUNTER 2024-11-15 18:52 | Inpatient (IN) | payer OTHER ==
[2024-11-15 20:26] LABS: #Basophils 0.04 10x3/uL (0.0-0.2); #Eosinophils 0.12 10x3/uL (0.0-0.7); #Monocytes 0.36 10x3/uL (0.11-0.59); #Neutrophils 1.86 10x3/uL (1.40-6.50); %Basophils 1.4 % (0.0-1.0); %Eosinophils 4.2 % (0.0-10.0); %Lymphocytes 16.2 % (21.0-51.0); %Monocytes 12.7 % (0.0-10.0); %Neutrophils 65.5 % (42.0-75.0); Hematocrit 27.3 % (36.0-47.0); Hemoglobin 8.5 g/dL (12.0-16.0); Mean Corpuscular Hemoglobin 29.0 pg (27.0-31.0); Mean Corpuscular Volume 93.2 fL (78.0-98.0); Platelet Count 160 10x3/uL (130-400); Red Blood Cell (RBC) Count 2.93 mill/uL (4.20-5.40); White Blood Cell (WBC) Count 2.84 10x3/uL (4.8-10.8)
[2024-11-15 20:44] LABS: Bacteria/HPF None Seen HPF (None Seen); CAUTI Indications for Culture Alt mental st,lethar; Glucose, Urine (Dipstick) Normal (Negative); Leukocyte Negative Leu/uL (Negative); Protein, Urine (Dipstick) 20 mg/dL (Neg-Trace); RBC/HPF 0-3 HPF (0-3); Specific Gravity, Urine 1.017 (1.002-1.036); WBC/HPF 0-3 HPF (0-3)
[2024-11-15 20:45] LABS: Urine Culture Reflex No No
[2024-11-15 20:51] LABS: ALT (SGPT) Less than 7 U/L (Less than 34); AST (SGOT) 22 U/L (11-34); Albumin 2.9 g/dL (3.1-4.5); Alkaline Phosphatase 61 U/L (40-110); Anion Gap 21 mmol/L (10-20); BUN (Urea Nitrogen) 15 mg/dL (9.8-20.1); Bilirubin, Total 0.5 mg/dL (0.3-1.2); Calc. Creatinine Clearance 0 mL/min (70-130); Calcium 9.0 mg/dL (7.8-10.44); Carbon Dioxide 18 mmol/L (23-31); Chloride 107 mmol/L (98-107); Globulin 2.6 g/dL (2.4-3.5); Glucose 34 mg/dL (83-110); Potassium 3.5 mmol/L (3.5-5.1); Sodium 142 mmol/L (136-145)
[2024-11-15] MEDS ORDERED: Dextrose 50% Abboject 50 ML SYRINGE ONE (20:57)
[2024-11-15] MEDS ORDERED: Ondansetron PF 4 MG/2 ML Vial IVP PRN (23:30)
[2024-11-15] MEDS ORDERED: Acetaminophen 325 MG TAB PO PRN (23:30)
[2024-11-15] MEDS ORDERED: Dextrose 50% Abboject 50 ML SYRINGE SLOW IVP PRN (23:35)
[2024-11-15] MEDS ORDERED: Glucagon 1 MG/ML KIT IM PRN (23:35)
[2024-11-16] MEDS ORDERED: Dextrose 50% Abboject 50 ML SYRINGE ONE (01:59)
[2024-11-16] MEDS ORDERED: HYDROcodone/Acetaminophen 10/325 mg Tablet PO PRN (02:59)
[2024-11-16 03:37] LABS: #Basophils 0.04 10x3/uL (0.0-0.2); #Eosinophils 0.10 10x3/uL (0.0-0.7); #Monocytes 0.41 10x3/uL (0.11-0.59); #Neutrophils 2.06 10x3/uL (1.40-6.50); %Basophils 1.3 % (0.0-1.0); %Eosinophils 3.3 % (0.0-10.0); %Lymphocytes 12.7 % (21.0-51.0); %Monocytes 13.7 % (0.0-10.0); %Neutrophils 68.7 % (42.0-75.0); Hematocrit 25.5 % (36.0-47.0); Hemoglobin 8.0 g/dL (12.0-16.0); Mean Corpuscular Hemoglobin 29.0 pg (27.0-31.0); Mean Corpuscular Volume 92.4 fL (78.0-98.0); Platelet Count 168 10x3/uL (130-400); Red Blood Cell (RBC) Count 2.76 mill/uL (4.20-5.40); White Blood Cell (WBC) Count 3.00 10x3/uL (4.8-10.8)
[2024-11-16 03:56] LABS: ALT (SGPT) Less than 7 U/L (Less than 34); AST (SGOT) 16 U/L (11-34); Albumin 2.5 g/dL (3.1-4.5); Alkaline Phosphatase 53 U/L (40-110); Anion Gap 14 mmol/L (10-20); BUN (Urea Nitrogen) 15 mg/dL (9.8-20.1); Bilirubin, Total 0.5 mg/dL (0.3-1.2); Calc. Creatinine Clearance 0 mL/min (70-130); Calcium 8.5 mg/dL (7.8-10.44); Carbon Dioxide 22 mmol/L (23-31); Chloride 107 mmol/L (98-107); Globulin 2.2 g/dL (2.4-3.5); Glucose 156 mg/dL (83-110); Potassium 3.4 mmol/L (3.5-5.1); Sodium 140 mmol/L (136-145)
[2024-11-16] MEDS ORDERED: Apixaban 5 MG TAB ONE (08:28)
[2024-11-16] MEDS ORDERED: Pantoprazole 40 MG DR.TAB ONE (08:28)
[2024-11-16] MEDS: Apixaban 5 MG TAB PO SCH (09:21)
[2024-11-16] MEDS: Pantoprazole 40 MG DR.TAB PO SCH (09:21)
[2024-11-16] MEDS ORDERED: Potassium Bicarbonate/Cit Ac 20 MEQ TAB ONE (14:08)
[2024-11-16 20:02] VITALS: BMI 22.1
[2024-11-17 04:07] LABS: ALT (SGPT) Less than 7 U/L (Less than 34); AST (SGOT) 21 U/L (11-34); Albumin 2.6 g/dL (3.1-4.5); Alkaline Phosphatase 60 U/L (40-110); Anion Gap 12 mmol/L (10-20); BUN (Urea Nitrogen) 10 mg/dL (9.8-20.1); Bilirubin, Total 0.5 mg/dL (0.3-1.2); Calc. Creatinine Clearance 32 mL/min (70-130); Calcium 9.2 mg/dL (7.8-10.44); Carbon Dioxide 25 mmol/L (23-31); Chloride 107 mmol/L (98-107); Globulin 2.5 g/dL (2.4-3.5); Glucose 98 mg/dL (83-110); Potassium 3.9 mmol/L (3.5-5.1); Sodium 140 mmol/L (136-145)
[2024-11-17 04:32] LABS: #Basophils 0.04 10x3/uL (0.0-0.2); #Eosinophils 0.08 10x3/uL (0.0-0.7); #Monocytes 0.44 10x3/uL (0.11-0.59); #Neutrophils 1.82 10x3/uL (1.40-6.50); %Basophils 1.4 % (0.0-1.0); %Eosinophils 2.8 % (0.0-10.0); %Lymphocytes 17.0 % (21.0-51.0); %Monocytes 15.3 % (0.0-10.0); %Neutrophils 63.2 % (42.0-75.0); Hematocrit 27.3 % (36.0-47.0); Hemoglobin 8.8 g/dL (12.0-16.0); Mean Corpuscular Hemoglobin 29.0 pg (27.0-31.0); Mean Corpuscular Volume 90.1 fL (78.0-98.0); Platelet Count 140 10x3/uL (130-400); Red Blood Cell (RBC) Count 3.03 mill/uL (4.20-5.40); White Blood Cell (WBC) Count 2.88 10x3/uL (4.8-10.8)
[2024-11-17 15:19] VITALS: BMI 22.1
[2024-11-17 16:17] VITALS: BP 102/66; TEMP 98
[2024-11-19] MEDS ORDERED: FLU (Fluad Triv) 25-26 (65UP)PF 45 MCG/0.5 ML Syringe IM ONE (09:00)
[2024-11-19] MEDS ORDERED: PNEUMOC 20-VAL CONJ-DIP CRM/PF 0.5 ML SYRINGE IM ONE (09:00)
== END 2024-11-17 18:00 | disposition hospice, home (50) | DRG 638 ==
LOC: ERS 18:52 → ERHOLD 23:20 → OBSVTOIN 11-16 17:28 → PCU 11-16 19:39
PROVIDERS: ADMIT Family Medicine; ATTEND Family Medicine
PROC: 3E0234Z Introduction of Serum, Toxoid and Vaccine into Muscle, Percutaneous Approach (ICD-10-PCS; principal; 2024-11-16)
DX: E11.649 Type 2 diabetes mellitus with hypoglycemia without coma (principal); C34.90 Malignant neoplasm of unspecified part of unspecified bronchus or lung; C79.31 Secondary malignant neoplasm of brain; C79.51 Secondary malignant neoplasm of bone; C79.70 Secondary malignant neoplasm of unspecified adrenal gland; I50.22 Chronic systolic (congestive) heart failure; G93.40 Encephalopathy, unspecified; N17.9 Acute kidney failure, unspecified; Z66 Do not resuscitate; Z51.5 Encounter for palliative care; I11.0 Hypertensive heart disease with heart failure; F03.90 Unspecified dementia, unspecified severity, without behavioral disturbance, psychotic disturbance, mood disturbance, and anxiety; F12.90 Cannabis use, unspecified, uncomplicated; M54.9 Dorsalgia, unspecified; E78.5 Hyperlipidemia, unspecified; R62.7 Adult failure to thrive; E86.0 Dehydration; R11.10 Vomiting, unspecified; D64.9 Anemia, unspecified; E03.9 Hypothyroidism, unspecified; Z98.890 Other specified postprocedural states; Z90.89 Acquired absence of other organs; Z90.11 Acquired absence of right breast and nipple; Z87.891 Personal history of nicotine dependence; Z88.8 Allergy status to other drugs, medicaments and biological substances; Z23 Encounter for immunization
CPT/HCPCS: 36415; 36416; 51701; 70450; 71045; 71250; 74177; 80053; 81001; 83605; 83880; 84443; 84484; 85025; 87040; 87086; 93005; 94760; 96374; 96376; J7999